=== PATIENT | male | born 2000 | race Caucasian/White ===

== ENCOUNTER 2020-03-22 23:37 | Emergency (ER) | payer OTHER ==
[2020-03-22 23:50] VITALS: RESP 18
--- NOTE | 2020-03-22 23:57 | ED ---
Psych HPI - General Chief Complaint: Psychiatric Symptoms Stated Complaint: Mental Health Time Seen by Provider: 03/22/20 23:55 Source: patient, RN notes reviewed, old records reviewed Mode of arrival: ambulatory - History of Present Illness Initial Comments: This is a 19-year-old male DF for evaluation psychiatric illness patient is brought in by PD for evaluation by psychiatry. Patient is making suicidal thoughts and comments secondary to recent grief reaction due to finding out that his girlfriend had a miscarriage. Denying drugs or alcohol use MD Complaint: feels depressed, other (Grief reaction) -: hour(s) Associated Psychiatric Symptoms: depression, racing thoughts History of same: No Quality: constant, resolved prior to arrival Improves With: none Worsens With: none Context: significant life stressor (Profound loss of child) Associated Symptoms: denies other symptoms Treatments Prior to Arrival: placed on mental health hold - Related Data Home Medications Medication Instructions Recorded Confirmed No Known Home Medications 07/08/16 07/08/16 Allergies Allergy/AdvReac Type Severity Reaction Status Date / Time No Known Allergies Allergy Verified 03/22/20 23:50 Review of Systems ROS Statement: Those systems with pertinent positive or pertinent negative responses have been documented in the HPI. ROS Other: All systems not noted in ROS Statement are negative. Past Medical History History of Any Multi-Drug Resistant Organisms: None Reported Past Surgical History: Adenoidectomy, Appendectomy, Ear Surgery, Tonsillectomy Additional Past Surgical History / Comment(s): cleft lip & palate Past Psychological History: ADD/ADHD Smoking Status: Current every day smoker Past Alcohol Use History: Occasional Past Drug Use History: Marijuana General Exam Limitations: no limitations General appearance: alert, in no apparent distress Head exam: Present: atraumatic, normocephalic, normal inspection Eye exam: Present: normal appearance, PERRL, EOMI. Absent: scleral icterus, conjunctival injection, periorbital swelling ENT exam: Present: normal exam, mucous membranes moist Neck exam: Present: normal inspection. Absent: tenderness, meningismus, lymphadenopathy Respiratory exam: Present: normal lung sounds bilaterally. Absent: respiratory distress, wheezes, rales, rhonchi, stridor Cardiovascular Exam: Present: regular rate, normal rhythm, normal heart sounds. Absent: systolic murmur, diastolic murmur, rubs, gallop, clicks GI/Abdominal exam: Present: soft, normal bowel sounds. Absent: distended, tenderness, guarding, rebound, rigid Extremities exam: Present: normal inspection, full ROM, normal capillary refill. Absent: tenderness, pedal edema, joint swelling, calf tenderness Back exam: Present: normal inspection Neurological exam: Present: alert, oriented X3, CN II-XII intact Psychiatric exam: Present: normal affect, normal mood Skin exam: Present: warm, dry, intact, normal color. Absent: rash Course Vital Signs 03/22/20 03/23/20 23:44 03:34 Temperature 98.3 F 97.8 F Pulse Rate 77 89 Respiratory 18 18 Rate Blood Pressure 140/90 125/68 O2 Sat by Pulse 100 98 Oximetry - Reevaluation(s) Reevaluation #1: Medical records reviewed Patient made medically clear for psychiatric to evaluate Medical Decision Making - Medical Decision Making 19-year-old male DF for evaluation patient has been evaluated by psychiatric for referral reaction depression. Patient not homicidal or suicidal and can be discharged home Disposition Clinical Impression: Acute anxiety, Grief Disposition: HOME SELF-CARE Condition: Fair Instructions (If sedation given, give patient instructions): Grief and Loss (ED) Is patient prescribed a controlled substance at d/c from ED?: No Referrals: Vinay Casanova MD [Primary Care Provider] - 1-2 days
[2020-03-23 03:34] VITALS: BP 125/68; PULSE 89; TEMP 97.8
== END 2020-03-23 04:16 | disposition home or self-care (01) ==
LOC: EC 23:37
DX: F43.23 Adjustment disorder with mixed anxiety and depressed mood (principal); F17.200 Nicotine dependence, unspecified, uncomplicated
CPT/HCPCS: 82075; 99285

== ENCOUNTER 2021-06-28 18:13 | Emergency (ER) | payer OTHER ==
[2021-06-28 18:30] VITALS: BP 122/75; PULSE 73; RESP 18; TEMP 98.8
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
== END 2021-06-28 18:55 | disposition other institution (70) ==
LOC: EC 18:13
DX: S00.83XA Contusion of other part of head, initial encounter (principal); F90.9 Attention-deficit hyperactivity disorder, unspecified type; F17.200 Nicotine dependence, unspecified, uncomplicated; Z90.49 Acquired absence of other specified parts of digestive tract; W22.8XXA Striking against or struck by other objects, initial encounter
CPT/HCPCS: 99284

== ENCOUNTER 2025-02-07 01:12 | Emergency (ER) | payer OTHER, BC ==
[2025-02-07 01:22] VITALS: BP 123/79; PULSE 94; RESP 18; TEMP 97.4
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
[2025-02-07] MEDS: DIPH,PERTUS(ACELL)TETVAC-LF 0.5 ML VIAL IM ONE (01:32)
[2025-02-07] MEDS: CEPHALEXIN 500 MG CAP PO STA (01:55)
[2025-02-07] MEDS: LIDOCAINE 1% INJ 10MG/ML (20 ML MDV) SQ ONE (01:57)
--- NOTE | 2025-02-07 02:58 | XR ---
EXAM: XR Left Hand Complete, 3 Views CLINICAL HISTORY: Pt presents to the ED with left hand injury. Pt presents with PD . Pain and bleeding TECHNIQUE: Frontal, lateral and oblique views of the left hand. COMPARISON: No relevant prior studies available. FINDINGS: Bones/joints: Horizontal fracture near base of distal phalanx of fourth finger with 3 mm separation and mild dorsal apex angulation. Horizontal fracture of proximal half of diaphysis of distal phalanx of the third finger with 1 mm separation. No dislocation. Soft tissues: Associate soft tissue swelling without gas. No radiopaque foreign body. IMPRESSION: 1. Horizontal fracture near base of distal phalanx of fourth finger with 3 mm separation and mild dorsal apex angulation. 2. Horizontal fracture of proximal half of diaphysis of distal phalanx of the third finger with 1 mm separation.
== END 2025-02-07 02:27 | disposition home or self-care (01) ==
LOC: EC 01:12
DX: S62.601B Fracture of unspecified phalanx of left index finger, initial encounter for open fracture (principal); S62.603B Fracture of unspecified phalanx of left middle finger, initial encounter for open fracture; F17.200 Nicotine dependence, unspecified, uncomplicated; Z23 Encounter for immunization; Y04.0XXA Assault by unarmed brawl or fight, initial encounter
CPT/HCPCS: 73130; 90715; 99283; 90471; J2003